=== PATIENT | female | born 1975 | race Caucasian/White ===

== ENCOUNTER 2017-06-01 23:45 | Emergency (ER) | payer MEDICAID ==
[~2017-06-01] VITALS: Ht 160 cm; Wt 81.6 kg
[2017-06-02 00:02] VITALS: BP 122/60
--- NOTE | 2017-06-02 00:09 | NUR ---
to lobby amb, zulay rai noted
--- NOTE | 2017-06-02 00:54 | NUR ---
PT TAKEN TO BED 1
--- NOTE | 2017-06-02 01:05 | NUR ---
42 Y/O F W/C/O R SIDE PAIN S/P TAKEN 3 TRAMADOL PILLS. PT STATES DOES NOT RECALL DOSES BUT TOOK THEM 3 HRS APART. NO S/S OF DISTRESS NOTED. ER MD MADE AWARE.
[2017-06-02 01:24] VITALS: BP 122/60
== END 2017-06-02 01:24 | disposition home or self-care (01) ==
LOC: MED 23:45
DX: K59.00 Constipation, unspecified (principal); F19.20 Other psychoactive substance dependence, uncomplicated
CPT/HCPCS: 81002; 81025; 99282

== ENCOUNTER 2019-03-28 12:20 | Emergency (ER) | payer MEDICAID ==
[~2019-03-28] VITALS: Ht 160 cm; Wt 82.6 kg
[2019-03-28 12:36] VITALS: BP 112/71
--- NOTE | 2019-03-28 12:39 | NUR ---
PT W/C ASSISTED TO BED 10.
--- NOTE | 2019-03-28 12:42 | NUR ---
criminalist technician at bedside.
[2019-03-28] MEDS: IBUPROFEN 400 MG TAB PO ONE (13:37)
--- NOTE | 2019-03-28 14:20 | NUR ---
+ CMS DISTAL TO SPLINT APPLIED BY PHILIPPE SEGOVIA
[2019-03-28 14:27] VITALS: BP 114/72
== END 2019-03-28 14:27 | disposition home or self-care (01) ==
LOC: MED 12:20
DX: S93.402A Sprain of unspecified ligament of left ankle, initial encounter (principal); W10.8XXA Fall (on) (from) other stairs and steps, initial encounter; Y93.89 Activity, other specified; Y92.89 Other specified places as the place of occurrence of the external cause; Y99.8 Other external cause status
CPT/HCPCS: 73610; 99283; Q0092

== ENCOUNTER 2019-06-25 10:39 | Emergency (ER) | payer MEDICAID ==
[~2019-06-25] VITALS: Ht 160 cm; Wt 81.6 kg
[2019-06-25 10:46] VITALS: BP 126/86
--- NOTE | 2019-06-25 11:00 | NUR ---
PT C/O LEFT-SIDED CHEST PAIN RADIATING TO LEFT SHOULDR AND ARM W/ NAUSEA X 3 DAYS. PATIENT STATES PAIN OF 8/10 AT THIS TIME; VSS; PATIENT POSITIONED FOR COMFORT; HOB ELEVATED; BEDRAILS UP X1; BED DOWN. ER MD MADE AWARE OF PT STATUS.
[2019-06-25] MEDS ORDERED: NACL 0.9% 500 ML IV ONE (11:11)
[2019-06-25] MEDS ORDERED: PANTOPRAZOLE 40 MG INJ VIAL IVP ONE (11:15)
[2019-06-25] MEDS ORDERED: ONDANSETRON 4 MG/2 ML VIAL IVP ONE (11:15)
--- NOTE | 2019-06-25 11:26 | NUR ---
XRAY IS AT BEDSIDE.
[2019-06-25 11:48] LABS: BASOPHILS # (AUTO) 0.1 K/uL (0.00-0.22); BASOPHILS % (AUTO) 1.2 % (0.0-2.0); EOSINOPHILS # (AUTO) 0.3 K/uL (0-0.4); EOSINOPHILS % (AUTO) 3.5 % (0.0-4.0); HEMATOCRIT 33.8 % (36-48); LYMPHOCYTES # (AUTO) 2.7 K/uL (2.5-16.5); LYMPHOCYTES % (AUTO) 31.3 % (20.5-51.1); MEAN CORPUSCULAR HEMOGLOBIN 25 pg (27-31); MEAN CORPUSCULAR HGB CONC 33 g/dL (33-37); MEAN CORPUSCULAR VOLUME 76.8 fL (80-94); MONOCYTES # (AUTO) 0.5 K/uL (0.8-1.0); MONOCYTES % (AUTO) 6.3 % (1.7-9.3); NEUTROPHILS # (AUTO) 4.9 K/uL (1.8-7.7); NEUTROPHILS % (AUTO) 57.7 % (42.2-75.2); PLATELET COUNT (AUTO) 290 K/uL (140-450); RED BLOOD CELL COUNT(AUTO) 4.39 MIL/uL (4.20-5.40); RED CELL DISTRIBUTION WIDTH 15.4 % (11.6-13.7); WHITE BLOOD COUNT (AUTO) 8.5 K/uL (4.8-10.8)
[2019-06-25 12:02] LABS: ALBUMIN 3.2 g/dL (3.4-5.0); ANION GAP 13.5 (8-16); CARBON DIOXIDE 25.4 mmol/L (21-32); CREATININE 0.5 mg/dL (0.6-1.3); POTASSIUM 3.9 mmol/L (3.5-5.1); TOTAL BILIRUBIN 0.2 mg/dL (0.0-1.0)
--- NOTE | 2019-06-25 13:01 | NUR ---
PT AMBULATED TO BATHROOM W/ STEADY GAIT.
[2019-06-25 15:26] VITALS: BP 106/60
--- NOTE | 2019-06-25 15:27 | NUR ---
Patient discharged with v/s stable. Written and verbal after care instructions given and explained. Patient alert, oriented and verbalized understanding of instructions. Ambulatory with steady gait. All questions addressed prior to discharge. ID band removed. Patient advised to follow up with PMD. Rx of PROTONIX given. Patient educated on indication of medication including possible reaction and side effects. Opportunity to ask questions provided and answered.
== END 2019-06-25 15:27 | disposition home or self-care (01) ==
LOC: MED 10:39
DX: K29.70 Gastritis, unspecified, without bleeding (principal); R11.0 Nausea; D64.9 Anemia, unspecified
CPT/HCPCS: 36415; 71045; 80053; 83690; 84484; 85025; 93005; 96361; 96374; 96375; 99285; C9113; J2405; J7030; Q0092

== ENCOUNTER 2020-02-05 03:40 | Emergency (ER) | payer MEDICAID ==
[~2020-02-05] VITALS: Ht 160 cm; Wt 88.0 kg
[2020-02-05 03:45] VITALS: BP 122/73
[2020-02-05] MEDS ORDERED: KETOROLAC 15 MG/ML VIAL IVP STA (04:26)
[2020-02-05] MEDS ORDERED: NACL 0.9% 1,000 ML IV ONE (04:30)
[2020-02-05 04:54] LABS: BASOPHILS # (AUTO) 0.1 K/uL (0.00-0.22); HEMOGLOBIN 10.8 g/dL (12.0-16.0); LYMPHOCYTES # (AUTO) 1.8 K/uL (2.5-16.5); MONOCYTES # (AUTO) 0.4 K/uL (0.8-1.0)
[2020-02-05 05:11] LABS: ALBUMIN 3.7 g/dL (3.4-5.0); ANION GAP 13.5 (8-16); BASOPHILS % (AUTO) 1.2 % (0.0-2.0); CARBON DIOXIDE 25.3 mmol/L (21-32); CREATININE 0.8 mg/dL (0.6-1.3); EOSINOPHILS # (AUTO) 0.2 K/uL (0-0.4); EOSINOPHILS % (AUTO) 3.2 % (0.0-4.0); HEMATOCRIT 34.3 % (36-48); LYMPHOCYTES % (AUTO) 22.9 % (20.5-51.1); MEAN CORPUSCULAR HEMOGLOBIN 23 pg (27-31); MEAN CORPUSCULAR HGB CONC 32 g/dL (33-37); MEAN CORPUSCULAR VOLUME 73.5 fL (80-94); MONOCYTES % (AUTO) 4.7 % (1.7-9.3); NEUTROPHILS # (AUTO) 5.3 K/uL (1.8-7.7); PLATELET COUNT (AUTO) 335 K/uL (140-450); POTASSIUM 3.8 mmol/L (3.5-5.1); RED BLOOD CELL COUNT(AUTO) 4.66 MIL/uL (4.20-5.40); RED CELL DISTRIBUTION WIDTH 16.3 % (11.6-13.7); TOTAL BILIRUBIN 0.2 mg/dL (0.0-1.0); WHITE BLOOD COUNT (AUTO) 7.8 K/uL (4.8-10.8)
[2020-02-05 06:10] VITALS: BP 120/70
== END 2020-02-05 06:10 | disposition home or self-care (01) ==
LOC: MED 03:40
DX: K80.20 Calculus of gallbladder without cholecystitis without obstruction (principal)
CPT/HCPCS: 36415; 76705; 80053; 81002; 81025; 82150; 83690; 85025; 96361; 96374; 99284; J1885; J7030; Q0092

== ENCOUNTER 2020-03-29 02:40 | Inpatient (IN) | payer MEDICAID, SELFPAY ==
[~2020-03-29] VITALS: Ht 160 cm; Wt 81.6 kg
[2020-03-29 02:50] VITALS: BP 116/64
--- NOTE | 2020-03-29 02:54 | NUR ---
PT TAKEN TO BED 11
[2020-03-29] MEDS ORDERED: NACL 0.9% 1,000 ML IV ONE (03:00)
[2020-03-29] MEDS ORDERED: ONDANSETRON 4 MG/2 ML VIAL IVP ONE (03:00)
[2020-03-29] MEDS ORDERED: fentaNYL citrate 0.05 MG/ML VIAL IVP ONE (03:00)
--- NOTE | 2020-03-29 03:01 | NUR ---
pt states unable to provide urine and will try again later when fluids is given.
--- NOTE | 2020-03-29 03:02 | NUR ---
Dr. Person at bedside for MSE.
--- NOTE | 2020-03-29 03:05 | NUR ---
labs collected and sent to lab.
[2020-03-29 03:10] LABS: BASOPHILS # (AUTO) 0.1 K/uL (0.00-0.22); EOSINOPHILS # (AUTO) 0.1 K/uL (0-0.4); EOSINOPHILS % (AUTO) 0.9 % (0.0-4.0); NEUTROPHILS # (AUTO) 8.3 K/uL (1.8-7.7); RED CELL DISTRIBUTION WIDTH 17.9 % (11.6-13.7); WHITE BLOOD COUNT (AUTO) 10.5 K/uL (4.8-10.8)
--- NOTE | 2020-03-29 03:12 | NUR ---
18g Left AC IV initiated. flushable and patent. pt tolerated well.
--- NOTE | 2020-03-29 03:12 | NUR ---
44 year old female coming from home for c/o rlq, ruq abdominal pain x 2 days. states 9/10 aching pain. states was seen here in [facility] x 1 week for gallstones, states that today pain is unbearable. pt reports n/v. denies diarrhea/constipation. abdomen is soft and nontender. normoactive bowel sounds. a/o x 4. cbl sounds.normopneic. RRR. denies headache/ blurry vision. denies sob/chest pain. denies any other s/sx. denies injury or trauma. pmhx: anemia, 2c/s nkda
[2020-03-29 03:18] LABS: BASOPHILS % (AUTO) 0.6 % (0.0-2.0); HEMOGLOBIN 10.5 g/dL (12.0-16.0); LYMPHOCYTES # (AUTO) 1.5 K/uL (2.5-16.5); LYMPHOCYTES % (AUTO) 14.3 % (20.5-51.1); MEAN CORPUSCULAR HEMOGLOBIN 22 pg (27-31); MEAN CORPUSCULAR HGB CONC 32 g/dL (33-37); MEAN CORPUSCULAR VOLUME 70.6 fL (80-94); MONOCYTES # (AUTO) 0.5 K/uL (0.8-1.0); MONOCYTES % (AUTO) 5.2 % (1.7-9.3); PLATELET COUNT (AUTO) 357 K/uL (140-450); RED BLOOD CELL COUNT(AUTO) 4.68 MIL/uL (4.20-5.40)
[2020-03-29 03:26] LABS: ALBUMIN 3.6 g/dL (3.4-5.0); ANION GAP 18.5 (8-16); CARBON DIOXIDE 21.3 mmol/L (21-32); CREATININE 0.6 mg/dL (0.6-1.3); POTASSIUM 3.8 mmol/L (3.5-5.1); TOTAL BILIRUBIN 1.3 mg/dL (0.0-1.0)
--- NOTE | 2020-03-29 03:46 | NUR ---
Ultrasound at bedside.
--- NOTE | 2020-03-29 04:10 | NUR ---
ambulated to restroom to provide urine sample.
[2020-03-29] MEDS ORDERED: PIPERACILLIN/TAZOBACTAM 3.375 GM in DEXTROSE 5% 50 ML IV ONE (04:15)
[2020-03-29] MEDS ORDERED: PIPERACILLIN/TAZOBACTAM 3.375 GM VIAL IV ONE (04:21)
[2020-03-29] MEDS ORDERED: MORPHINE SULFATE 4 MG/ML SYR ONE ×3 (04:43→08:06)
[2020-03-29] MEDS ORDERED: MORPHINE SULFATE 4 MG/ML SYR IVP ONE (04:45)
--- NOTE | 2020-03-29 04:51 | NUR ---
blood cultures, urine sample, bruna swab collected and sent to lab.
[2020-03-29 06:00] LABS: APPEARANCE,URINE CLEAR (CLEAR); BILIRUBIN,URINE NEGATIVE (NEGATIVE); BLOOD, URINE 1+ (NEGATIVE); COLOR,URINE YELLOW (YELLOW); LEUKOCYTE ESTERASE ,URINE NEGATIVE (NEGATIVE); NITRITE, URINE NEGATIVE (NEGATIVE); UGLUCOSE NEGATIVE (NEGATIVE)
[2020-03-29] MEDS ORDERED: DOCUSATE SODIUM 100 MG GELCAP PO PRN (06:40)
[2020-03-29] MEDS ORDERED: ZOLPIDEM 5 MG TAB PO PRN (06:40)
[2020-03-29] MEDS ORDERED: ACETAMINOPHEN 325 MG TAB PO PRN (06:40)
[2020-03-29] MEDS ORDERED: LORazepam 2 MG/ML VIAL IM/IVP PRN (06:40)
[2020-03-29] MEDS ORDERED: HYDROcodone/APAP 5/325 MG 1 TAB TAB PO PRN (06:40)
--- NOTE | 2020-03-29 06:51 | NUR ---
X-Ray at bedside.
[2020-03-29] MEDS: DEXT 5% / NACL 0.45% 1,000 ML IV SCH ×2 (06:59→16:11)
--- NOTE | 2020-03-29 07:13 | NUR ---
pt endorsement given to Gayatri MARIE .transfer of care at this time.
[2020-03-29 07:36] LABS: CHOL/HDL RATIO 2.3 (1-4.5); FREE T4 (FREE THYROXINE) 1.14 ng/dL (0.76-1.46); MAGNESIUM 2.1 mg/dL (1.8-2.4); PHOSPHORUS 2.5 mg/dL (2.5-4.9); THYROID STIMULATING HORMONE 1.85 uIU/mL (0.34-3.74)
--- NOTE | 2020-03-29 07:52 | NUR ---
Performed MRSA swab, walked to lab.
[2020-03-29 07:57] LABS: BARBITURATE, URINE NEGATIVE ng/ml (NEG <=200); BENZODIAZEPINE, URINE NEGATIVE ng/mL (NEG <=200); CANNABINOID, URINE NEGATIVE ng/mL (NEG <=50); COCAINE, URINE NEGATIVE ng/mL (NEG <=300); OPIATE, URINE NEGATIVE ng/mL (NEG <=2000); PHENCYCLIDINE SCREEN,URINE NEGATIVE ng/mL (NEG <=25)
[2020-03-29 08:12] LABS: PROTHROMBIN TIME 9.9 secs (10.8-13.4)
[2020-03-29] MEDS: MORPHINE SULFATE 2 MG/ML SYR IVP PRN ×2 (08:17→14:23)
[2020-03-29] MEDS: ONDANSETRON 4 MG/2 ML VIAL IVP PRN ×2 (08:18→16:39)
--- NOTE | 2020-03-29 08:58 | NUR ---
PATIENT HAS BEEN SCREENED AND CATEGORIZED MODERATE NUTRITION RISK. PATIENT WILL BE SEEN WITHIN 3-5 DAYS OF ADMISSION. 03/31/20 04/02/[address]
--- NOTE | 2020-03-29 09:01 | NUR ---
SCDS placed on pt per MD order, HOB elevated, repositioned for comfort. VSS, will continue to monitor.
[2020-03-29 09:46] LABS: RBC,URINE 0-5 /HPF (0-5); WBC,URINE 0-5 /HPF (0-5)
--- NOTE | 2020-03-29 10:46 | NUR ---
Pt resting, HOB elevated, visible rise and fall of chest. Will continue to monitor.
--- NOTE | 2020-03-29 13:18 | NUR ---
Report called to Tyra MARIE for pending admission to [facility] 126A.
--- NOTE | 2020-03-29 13:25 | NUR ---
Patient will be admitted to care of MO PRESTON MD. Admited to [facility]. Will go to room 126A. Belongings list completed. Report to Tyra MARIE.
--- NOTE | 2020-03-29 13:30 | NUR ---
RECEIVED PATIENT AT THIS TIME. PT IS STABLE DENIES PAIN AT THIS TIME. PT IS AAO4 AMBULATES WITH STEADY GAIT. HAS IV ACCESS TO LEFT AC THAT IS INTACT AND PATENT RECONNECTED TO IVF. V/S 98.2, 74, 18, 110/62, 99% RA PAIN 0/10. PT EDUCATED ON NPO STATUS. MRSA SWAB COLLECTED AND ROUTED TO LAB ALL NEEDS MET
--- NOTE | 2020-03-29 15:30 | NUR ---
PT REPORTED PAIN 8/10 TO RIGHT UPPER ABDOMINAL PAIN. PT WAS GIVEN MORPHINE PER MD ORDER. EDUCATED ON ALTERNATIVE PAIN MGMT. PT VERBALIZED UNDERSTANDING. 122/82, 85
--- NOTE | 2020-03-29 19:25 | NUR ---
PT ENDORSED TO PM RN FOR CONTINUITY OF CARE PT STABLE
--- NOTE | 2020-03-29 19:30 | NUR ---
RECEIVED ENDORSEMENT FROM AM SHIFT RN. ALERT AND ORIENTED X4, NO DISTRESS, ON ROOM AIR. LAC 18. INTACT, INFUSING IVF. SAFETY MEASURES IN PLACE, PLAN OF CARE DISCUSSED. CALL LIGHT WITHIN REACH.
[2020-03-29 20:00] VITALS: BP 104/59
[2020-03-29] MEDS: PIPERACILLIN/TAZOBACTAM 3.375 GM in DEXTROSE 5% 50 ML IV SCH (20:50)
--- NOTE | 2020-03-29 21:00 | NUR ---
PATIENT IS AWAKE, DUE MEDS GIVEN ORDERED, MED EDUCATION PROVIDED. ANSWERED ALL QUESTIONS.
--- NOTE | 2020-03-30 01:45 | NUR ---
LAC IV SITE, INFILTRATED, RE INSERTED G 22 AT RT HAND, ATTEMPTED X1 W/ GOOD BLOOD RETURN. IVF CONTINUED.
[2020-03-30] MEDS: DEXT 5% / NACL 0.45% 1,000 ML IV SCH ×2 (01:58→07:40)
[2020-03-30] MEDS: MORPHINE SULFATE 2 MG/ML SYR IVP PRN ×5 (01:59→23:50)
[2020-03-30] MEDS: ONDANSETRON 4 MG/2 ML VIAL IVP PRN ×4 (01:59→23:49)
--- NOTE | 2020-03-30 01:59 | NUR ---
PT IS NAUSEOUS, GAVE ZOFRAN IVP PRN ORDERED, C/O ABDOMINAL PAIN 11/16, MORPHINE IV GIVEN ORDERED.
[2020-03-30 04:00] VITALS: BP 106/59
[2020-03-30] MEDS: PIPERACILLIN/TAZOBACTAM 3.375 GM in DEXTROSE 5% 50 ML IV SCH ×3 (04:31→22:00)
[2020-03-30 06:29] LABS: BASOPHILS % (AUTO) 0.5 % (0.0-2.0); EOSINOPHILS # (AUTO) 0.1 K/uL (0-0.4); EOSINOPHILS % (AUTO) 1.1 % (0.0-4.0); HEMATOCRIT 29.3 % (36-48); HEMOGLOBIN 9.4 g/dL (12.0-16.0); LYMPHOCYTES # (AUTO) 1.4 K/uL (2.5-16.5); LYMPHOCYTES % (AUTO) 14.2 % (20.5-51.1); MEAN CORPUSCULAR HEMOGLOBIN 23 pg (27-31); MEAN CORPUSCULAR HGB CONC 32 g/dL (33-37); MEAN CORPUSCULAR VOLUME 70.8 fL (80-94); MONOCYTES # (AUTO) 0.7 K/uL (0.8-1.0); MONOCYTES % (AUTO) 6.8 % (1.7-9.3); NEUTROPHILS # (AUTO) 7.8 K/uL (1.8-7.7); NEUTROPHILS % (AUTO) 77.4 % (42.2-75.2); PLATELET COUNT (AUTO) 300 K/uL (140-450); RED BLOOD CELL COUNT(AUTO) 4.14 MIL/uL (4.20-5.40); WHITE BLOOD COUNT (AUTO) 10.1 K/uL (4.8-10.8)
[2020-03-30 06:33] LABS: ANION GAP 13.4 (8-16); CARBON DIOXIDE 21.9 mmol/L (21-32); CREATININE 0.6 mg/dL (0.6-1.3); POTASSIUM 3.3 mmol/L (3.5-5.1)
[2020-03-30 06:37] LABS: MAGNESIUM 2.1 mg/dL (1.8-2.4)
--- NOTE | 2020-03-30 07:30 | NUR ---
PT IS STABLE, ENDORSED TO AM SHIFT RN FOR CONTINUITY OF CARE.
--- NOTE | 2020-03-30 07:30 | NUR ---
RECEIVED REPORT FROM NIGHT NURSE FOR CONTINUITY OF CARE, PT IS STABLE, PT HAS RIGHT HAND 22G INFUSING D5 1/2NS AT 120 ML/H, PT AAOX4, SKIN INTACT, WILL CONTINUE TO MONITOR, CALL LIGHT WITHIN REACH.
[2020-03-30 08:00] VITALS: BP 96/59
--- NOTE | 2020-03-30 08:32 | NUR ---
UPDATED PT ON TODAY PLAN OF CARE, PT VERBALIZED UNDERSTANDING, PT IS STABLE, WILL CONTINUE TO MONITOR.
--- NOTE | 2020-03-30 10:00 | NUR ---
ADMINISTERED MORPHINE FOR NUCLEAR MED PROCEDURE AND ZOFRAN FOR NAUSEA, MEDICATION EDUCATION PROVIDED, PT TOLERATED WELL, PT IS STABLE, WILL CONTINUE TO MONITOR.
--- NOTE | 2020-03-30 12:06 | NUR ---
NOTIFIED DR HERNANDEZ PT'S POTASSIUM IS 3.3,
--- NOTE | 2020-03-30 15:12 | NUR ---
ADMINISTERED MORPHINE FOR ABD PAIN 8/10, DULL SHARP PAIN, MEDICATION EDUCATION PROVIDED, PT VERBALIZED UNDERSTANDING, PT TOLERATED WELL, PT IS STABLE, WILL CONTINUE TO MONITOR.
[2020-03-30 16:00] VITALS: BP 116/55
[2020-03-30] MEDS ORDERED: HYDROcodone/APAP 5/325 MG 1 TAB TAB PO PRN (16:35)
[2020-03-30] MEDS ORDERED: MAG SULF 2000 MG/WATER PREMIX 50 ML IV PRN (16:55)
[2020-03-30] MEDS ORDERED: POTASSIUM PHOSPHATE 15 MM in NACL 0.9% 250 ML IV SCH (16:55)
[2020-03-30] MEDS ORDERED: POTASSIUM CHLORIDE 10 MEQ TABER PO PRN (16:55)
[2020-03-30] MEDS: NACL 0.9% 1,000 ML IV SCH ×2 (17:28→23:15)
--- NOTE | 2020-03-30 17:42 | NUR ---
ADMINISTERED K-DUR FOR POTASSIUM OF 3.3, MORPHINE FOR ABD PAIN OF 9/10, MEDICATION EDUCATION PROVIDED, PT VERBALIZED UNDERSTANDING, PT TOLERATED WELL, PT IS STABLE, WILL CONTINUE TO MONITOR.
--- NOTE | 2020-03-30 19:35 | NUR ---
ENDORSE PT TO NIGHT NURSE FOR CONTINUITY OF CARE, PT IS STABLE
--- NOTE | 2020-03-30 19:36 | NUR ---
RECEIVED ENDORSEMENT FROM AM SHIFT RN. ALERT AND ORIENTED X4, NO DISTRESS, ON ROOM AIR. RH 22. INTACT, INFUSING IVF. SAFETY MEASURES IN PLACE, PLAN OF CARE DISCUSSED. CALL LIGHT WITHIN REACH.
--- NOTE | 2020-03-30 21:44 | NUR ---
REFUSED HEPARIN, STATED "I KEPT ON MOVING MY LEGS AND I AM ABLE TO WALK."
--- NOTE | 2020-03-30 22:01 | NUR ---
ZOSYN IV GIVEN ORDERED, NO A/R NOTED.
[2020-03-31] MEDS: NACL 0.9% 1,000 ML IV SCH (01:59)
--- NOTE | 2020-03-31 01:59 | NUR ---
HANGED A NEW IVF NS 1L AT 150CC/HR. ASLEEP, RESPIRATION EVEN AND UNLABORED.
[2020-03-31 04:00] VITALS: BP 115/65
[2020-03-31] MEDS: MORPHINE SULFATE 2 MG/ML SYR IVP PRN (04:23)
--- NOTE | 2020-03-31 04:23 | NUR ---
COMPLAINT OF ABDOMINAL PAIN ATTENDED PROMPTLY, MEDICATED FOR THE SECOND TIME WITH MORPHINE PER MD ORDER.
[2020-03-31] MEDS: PIPERACILLIN/TAZOBACTAM 3.375 GM in DEXTROSE 5% 50 ML IV SCH ×3 (04:24→20:22)
[2020-03-31 06:38] LABS: BASOPHILS % (AUTO) 0.4 % (0.0-2.0); EOSINOPHILS # (AUTO) 0.2 K/uL (0-0.4); EOSINOPHILS % (AUTO) 1.7 % (0.0-4.0); HEMATOCRIT 29.6 % (36-48); HEMOGLOBIN 9.3 g/dL (12.0-16.0); LYMPHOCYTES # (AUTO) 1.7 K/uL (2.5-16.5); LYMPHOCYTES % (AUTO) 15.2 % (20.5-51.1); MEAN CORPUSCULAR HEMOGLOBIN 23 pg (27-31); MEAN CORPUSCULAR HGB CONC 31 g/dL (33-37); MEAN CORPUSCULAR VOLUME 71.5 fL (80-94); MONOCYTES # (AUTO) 0.8 K/uL (0.8-1.0); MONOCYTES % (AUTO) 7.3 % (1.7-9.3); NEUTROPHILS # (AUTO) 8.4 K/uL (1.8-7.7); NEUTROPHILS % (AUTO) 75.4 % (42.2-75.2); PLATELET COUNT (AUTO) 281 K/uL (140-450); RED BLOOD CELL COUNT(AUTO) 4.14 MIL/uL (4.20-5.40); RED CELL DISTRIBUTION WIDTH 18.5 % (11.6-13.7); WHITE BLOOD COUNT (AUTO) 11.1 K/uL (4.8-10.8)
[2020-03-31 06:58] LABS: ANION GAP 12.4 (8-16); CREATININE 0.6 mg/dL (0.6-1.3); POTASSIUM 3.4 mmol/L (3.5-5.1); TOTAL BILIRUBIN 4.7 mg/dL (0.0-1.0)
--- NOTE | 2020-03-31 07:00 | NUR ---
CONDITION REMAIN STABLE. WILL ENDORSE TO AM SHIFT NURSE FOR CONTINUITY OF CARE.
[2020-03-31 07:02] LABS: PHOSPHORUS 2.1 mg/dL (2.5-4.9)
--- NOTE | 2020-03-31 07:28 | NUR ---
RECEIVED PATIENT FROM NIGHT NURSE. PATIENT IN BED AWAKE AND ALERT. FACIAL GRIMACE NOTED C/O PAIN TO ABD. WILL MEDICATE APPROPRIATELY. RESP EVEN AND UNLABORED ON ROOM AIR. RH 22G INFUSING D5-1/2NS. ABLE TO MAKE NEEDS KNOWN. PLAN OF CARE DISCUSSED WITH PATIENT. PATIENT VERBALIZED UNDERSTANDING. SAFETY MEASURES IN PLACE. CALL LIGHT WITHIN REACH. WILL CONTINUE TO MONITOR.
[2020-03-31 08:00] VITALS: BP 104/66
--- NOTE | 2020-03-31 09:25 | NUR ---
PATIENT IN BED AWAKE AND ALERT. SKIN IS WARM TO TOUCH AND INTACT. PAIN REPORTED TO RIGHT LOWER QUADRANT. DX: ACUTE PANCREATITIS. RESP EVEN AND UNLABORED ON ROOM AIR. PATIENT IS ABLE TO AMBULATE TO THE BATHROOM WITH STEADY GAIT. PATIENT ENCOURAGED TO USE CALL LIGHT FOR ASSIST. PLAN OF CARE DISCUSSED WITH PATIENT. PATIENT VERBALIZED UNDERSTANDING. DR ORO DISCUSSED PLAN FOR TOMORROW AM OF ERCP. PATIENT VERBALIZED UNDERSTANDING. WILL OBTAIN CONSENT. RH 22G INTACT AND PATENT INFUSING WELL. CALL LIGHT WITHIN REACH. WILL CONTINUE TO MONITOR.
[2020-03-31] MEDS ORDERED: HYDROmorphone 1 MG/ML AMP IVP PRN (09:30)
[2020-03-31] MEDS ORDERED: KCL 20 MEQ/WATER INJ PREMIX 100 ML IV SCH (10:00)
[2020-03-31 10:06] LABS: FOLIC ACID 11.9 ng/mL (>3.0)
[2020-03-31] MEDS: POTASSIUM CHLORIDE 10 MEQ in LACTATED RINGERS 1,000 ML IV SCH ×2 (10:37→17:33)
[2020-03-31] MEDS: ONDANSETRON 4 MG/2 ML VIAL IVP PRN ×3 (10:40→22:15)
--- NOTE | 2020-03-31 10:45 | NUR ---
PATIENT IN BED AWAKE AND ALERT. DILAUDID GIVEN FOR ABD PAIN. RESP EVEN AND UNLABORED ON ROOM AIR. PATIENT ABLE TO MAKE NEEDS KNOWN. CONSENT FOR ERCP SIGNED BY PATIENT. PROCEDURE SET FOR TOMORROW AM AT [address] ORO. PATIENT VERBALIZED UNDERSTANDING. CALL LIGHT WITHIN REACH. WILL CONTINUE TO MONITOR.
[2020-03-31] MEDS ORDERED: LIDOCAINE MPF IV SCH (11:15)
[2020-03-31] MEDS ORDERED: NACL 0.9% IV SCH (11:15)
[2020-03-31] MEDS ORDERED: POTASSIUM CHLORIDE IV SCH (11:15)
[2020-03-31] MEDS: SENNA 8.6 MG TAB PO SCH ×2 (12:09→18:36)
--- NOTE | 2020-03-31 13:55 | NUR ---
PATIENT IN BED, PAIN AT TOLERABLE LEVEL AT THIS TIME. RESP EVEN AND UNLABORED ON ROOM AIR. NO NOTED DISTRESS AT THIS TIME. PATIENT IS ABLE TO MAKE NEEDS KNOWN. WILL CONTINUE TO MONITOR.
[2020-03-31] MEDS: HYDROmorphone 1 MG/ML AMP IVP PRN ×2 (15:51→19:51)
--- NOTE | 2020-03-31 15:55 | NUR ---
DILAUDID GIVEN FOR ABD PAIN ON SCALE OF 7/10. ZOFRAN ALSO GIVEN FOR FEELING NAUSEA. PATIENT ENCOURAGED DEEP BREATH AND COUGH. PATIENT ABLE TO AMBULATE TO THE BATHROOM WITH STEADY GAIT. CALL LIGHT WITHIN REACH. WILL CONTINUE TO MONITOR
[2020-03-31 16:00] VITALS: BP 119/75
--- NOTE | 2020-03-31 16:00 | NUR ---
PATIENT IN BED C/O SEVERE PAIN TO ABD. DR HERNANDEZ MADE AWARE OF PATIENT PAIN AND LAST DILAUDID WAS GIVEN WITHIN 6 HRS. RECEIVED ORDER TO DECREASE FREQUENCY OF DILAUDID 1MG IVP PRN Q4H. ORDER READ BACK AND CONFIRMED. ORDER CARRIED OUT. PATIENT ALSO RECEIVED ZOFRAN FOR NAUSEA. RESP EVEN AND UNLABORED ON ROOM AIR. CALL LIGHT WITHIN REACH. WILL CONTINUE TO MONITOR.
--- NOTE | 2020-03-31 17:35 | NUR ---
PATIENT IN BED TALKING ON HER CELL PHONE. PAIN IS AT TOLERABLE LEVEL AT THIS TIME. RESP EVEN AND UNLABORED ON ROOM AIR. ABLE TO MAKE NEEDS KNOWN. CALL LIGHT WITHIN REACH. WILL CONTINUE TO MONITOR.
--- NOTE | 2020-03-31 19:20 | NUR ---
ENDORSED PATIENT TO NIGHT NURSE. PATIENT IN STABLE CONDITION.
--- NOTE | 2020-03-31 19:21 | NUR ---
RECEIVED REPORT FROM NELLA ABBOTT RN. PT AOX4 ON ROOM AIR. NO S/S RESPIRATORY DISTRESS. WILL MEDICATE WITH PRN PAIN MED FOR ABD PAIN. IV SITE R HAND 22G, PATENT AND INTACT. SAFETY MEASURES IN PLACE. CALL LIGHT WITHIN REACH. WILL CONTINUE TO MONITOR
--- NOTE | 2020-03-31 19:51 | NUR ---
ADMINISTERED PRN DILAUDID FOR PT C/O ABD PAIN. TOLERATED WELL. WILL CONTINUE TO MONITOR
[2020-03-31 20:00] VITALS: BP 120/83
--- NOTE | 2020-03-31 22:19 | NUR ---
ADMINISTERED PRN ZOFRAN FOR PT C/O NAUSEA. TOLERATED WELL. WILL CONTINUE TO MONITOR
[2020-04-01] MEDS ORDERED: METOCLOPRAMIDE 10 MG/2 ML INJ VIAL IVP PRN (00:35)
[2020-04-01] MEDS ORDERED: ONDANSETRON 4 MG/2 ML VIAL IVP PRN ×3 (00:35→12:15)
--- NOTE | 2020-04-01 00:36 | NUR ---
PT C/O NAUSEA AND VOMITING, SAID THAT ZOFRAN IS NOT WORKING. MADE AWARE. NEW ORDERS RECEIVED
[2020-04-01] MEDS: HYDROmorphone 1 MG/ML AMP IVP PRN ×4 (00:47→20:22)
--- NOTE | 2020-04-01 00:47 | NUR ---
ADMINISTERED PRN DILAUDID FOR PT C/O ABD PAIN. TOLERATED WELL. WILL CONTINUE TO MONITOR
[2020-04-01] MEDS: POTASSIUM CHLORIDE 10 MEQ in LACTATED RINGERS 1,000 ML IV SCH ×3 (01:36→17:42)
[2020-04-01 04:00] VITALS: BP 112/77
--- NOTE | 2020-04-01 04:50 | NUR ---
ADMINISTERED PRN DILAUDID FOR PT C/O ABD PAIN. TOLERATED WELL. WILL CONTINUE TO MONITOR
[2020-04-01] MEDS: PIPERACILLIN/TAZOBACTAM 3.375 GM in DEXTROSE 5% 50 ML IV SCH ×3 (04:51→20:32)
[2020-04-01 06:19] LABS: BASOPHILS # (AUTO) 0.1 K/uL (0.00-0.22); BASOPHILS % (AUTO) 0.5 % (0.0-2.0); EOSINOPHILS # (AUTO) 0.2 K/uL (0-0.4); EOSINOPHILS % (AUTO) 1.9 % (0.0-4.0); HEMATOCRIT 30.3 % (36-48); HEMOGLOBIN 9.6 g/dL (12.0-16.0); LYMPHOCYTES # (AUTO) 1.4 K/uL (2.5-16.5); LYMPHOCYTES % (AUTO) 11.3 % (20.5-51.1); MEAN CORPUSCULAR HEMOGLOBIN 23 pg (27-31); MEAN CORPUSCULAR HGB CONC 32 g/dL (33-37); MEAN CORPUSCULAR VOLUME 71.6 fL (80-94); MONOCYTES # (AUTO) 0.7 K/uL (0.8-1.0); MONOCYTES % (AUTO) 5.8 % (1.7-9.3); NEUTROPHILS # (AUTO) 10.3 K/uL (1.8-7.7); NEUTROPHILS % (AUTO) 80.5 % (42.2-75.2); PLATELET COUNT (AUTO) 264 K/uL (140-450); RED BLOOD CELL COUNT(AUTO) 4.23 MIL/uL (4.20-5.40); WHITE BLOOD COUNT (AUTO) 12.8 K/uL (4.8-10.8)
[2020-04-01 06:36] LABS: ANION GAP 14.5 (8-16); CARBON DIOXIDE 24.1 mmol/L (21-32); CREATININE 0.5 mg/dL (0.6-1.3); POTASSIUM 3.6 mmol/L (3.5-5.1)
[2020-04-01 06:38] LABS: MAGNESIUM 1.9 mg/dL (1.8-2.4); PHOSPHORUS 2.2 mg/dL (2.5-4.9)
--- NOTE | 2020-04-01 07:25 | NUR ---
RECEIVED REPORT FROM PROGRAM SERVICES PLANNER NURSE NIKITA FOR CONTINUITY OF CARE. PATIENT IN STABLE CONDITION. RESPIRATIONS EVEN AND UNLABORED, ROOM AIR. IV INTACT AND PATENT. SAFETY MEASURES IN PLACE. BED IN LOW POSITION. CALL LIGHT WITHIN REACH. WILL CONTINUE TO MONITOR.
--- NOTE | 2020-04-01 07:25 | NUR ---
ENDORSED PT TO DAY RN FOR CONTINUITY OF CARE. PT IS IN STABLE CONDITION
[2020-04-01 08:00] VITALS: BP 131/55
--- NOTE | 2020-04-01 08:40 | NUR ---
OFF UNIT FOR SX. PATIENT IN STABLE CONDITION.
[2020-04-01] MEDS: SENNA 8.6 MG TAB PO SCH ×3 (08:50→17:57)
[2020-04-01] MEDS ORDERED: diphenhydrAMINE 50 MG/ML VIAL IVP PRN ×2 (09:00→12:15)
[2020-04-01] MEDS ORDERED: SODIUM PHOSPHATE 15 MMOLE in NACL 0.9% 250 ML IV SCH (09:00)
[2020-04-01] MEDS ORDERED: MEPERIDINE 25 MG/ML SYR IVP PRN ×2 (09:00→12:15)
[2020-04-01] MEDS ORDERED: fentaNYL citrate 0.05 MG/ML VIAL IVP PRN ×2 (09:00→12:15)
[2020-04-01] MEDS ORDERED: LACTATED RINGERS 1,000 ML IV SCH ×2 (09:00→12:15)
[2020-04-01 09:17] LABS: ALBUMIN 2.8 g/dL (3.4-5.0); ANION GAP 17.2 (8-16); CARBON DIOXIDE 21.6 mmol/L (21-32); CREATININE 0.5 mg/dL (0.6-1.3); POTASSIUM 3.8 mmol/L (3.5-5.1); TOTAL BILIRUBIN 5.3 mg/dL (0.0-1.0)
--- NOTE | 2020-04-01 09:38 | NUR ---
PATIENT BACK ON UNIT NOT ABLE TO PERFORM SX AT THIS TIME. PATIENT IN STABLE CONDITION.
--- NOTE | 2020-04-01 09:56 | NUR ---
GAVE PRN MEDICATIONS FOR PAIN AND NAUSEA PER PATIENT REQUEST. PATIENT TOLERATED WELL. BED IN LOW POSITION. CALL LIGHT WITHIN REACH. WILL CONTINUE TO MONITOR.
--- NOTE | 2020-04-01 13:15 | NUR ---
PATIENT OFF UNIT FOR SX PATIENT IN STABLE CONDITION.
[2020-04-01] MEDS ORDERED: GLYCOPYRROLATE 0.2 MG/ML VIAL ONE (13:45)
[2020-04-01] MEDS ORDERED: fentaNYL citrate 0.05 MG/ML VIAL ONE (13:45)
[2020-04-01] MEDS ORDERED: DEXAMETHASONE 4 MG/ML VIAL ONE (13:45)
[2020-04-01] MEDS ORDERED: LIDOCAINE 2% 100 MG/5 ML SYR IVP ONE (13:45)
[2020-04-01] MEDS ORDERED: KETAMINE 500 MG/5 ML VIAL ONE (13:45)
[2020-04-01] MEDS ORDERED: ONDANSETRON 4 MG/2 ML VIAL ONE (13:45)
[2020-04-01] MEDS ORDERED: PROPOFOL 200 MG/20 ML VIAL IV ONE (13:45)
[2020-04-01] MEDS ORDERED: MIDAZOLAM 2 MG/2 ML VIAL ONE (13:45)
[2020-04-01] MEDS ORDERED: METOCLOPRAMIDE 10 MG/2 ML INJ VIAL ONE (13:45)
[2020-04-01] MEDS ORDERED: SIMETHICONE 40 MG/0.6 ML ONE (13:47)
--- NOTE | 2020-04-01 15:50 | NUR ---
PATIENT BACK ON UNIT. PATIENT IN STABLE CONDITION. BED IN LOW POSITION. CALL LIGHT WITHIN REACH. BED ALARM ON. WILL CONTINUE TO MONITOR.
[2020-04-01 16:00] VITALS: BP 109/55
--- NOTE | 2020-04-01 17:50 | NUR ---
GAVE PATIENT LIQUID DIET TRAY AT THIS TIME. INSTRUCTED PATIENT TO TAKE TIME EATING. Addendum: 04/01/20 at 2014 by Marylou Garcia RN PATIENT WAS ABLE TO TOLERATE FOOD.
--- NOTE | 2020-04-01 19:48 | NUR ---
GAVE REPORT TO COUNTER INSTALLER NURSE NIKITA FOR CONTINUITY OF CARE. PATIENT IN STABLE CONDITION. INFORMED NURSE PATIENT WILL BE NPO AFTER MIDNIGHT.
--- NOTE | 2020-04-01 19:50 | NUR ---
RECEIVED REPORT FROM SCAR RNFLORECITA. PT AOX4 ON ROOM AIR. NO S/S RESPIRATORY DISTRESS. IV SITE R HAND 22G PATENT AND INTACT INFUSING IVF ORDERED. SAFETY MEASURES IN PLACE. CALL LIGHT WITHIN REACH. WILL CONTINUE TO MONITOR
[2020-04-01 20:20] VITALS: BP 108/64
--- NOTE | 2020-04-01 20:22 | NUR ---
ADMINISTERED PRN PAIN MEDICATION FOR PT C/O ABD PAIN. TOLERATED WELL. WILL CONTINUE TO MONITOR
--- NOTE | 2020-04-01 20:32 | NUR ---
ADMINISTERED SCHEDULED MED. MEDICATION EDUCATION PROVIDED. PT TOLERATED WELL. WILL CONTINUE TO MONITOR
--- NOTE | 2020-04-01 22:30 | NUR ---
PT AWAKE IN BED. DENIES PAIN, DENIES NAUSEA. NO DISTRESS NOTED. WILL CONTINUE TO MONITOR
[2020-04-02] MEDS: POTASSIUM CHLORIDE 10 MEQ in LACTATED RINGERS 1,000 ML IV SCH ×2 (01:45→16:20)
--- NOTE | 2020-04-02 02:05 | NUR ---
PT ASLEEP IN BED. RESPIRATIONS EVEN AND UNLABORED. NO DISTRESS NOTED. WILL CONTINUE TO MONITOR
[2020-04-02 04:00] VITALS: BP 104/61
[2020-04-02] MEDS: PIPERACILLIN/TAZOBACTAM 3.375 GM in DEXTROSE 5% 50 ML IV SCH ×3 (05:04→23:17)
--- NOTE | 2020-04-02 06:00 | NUR ---
OBTAINED CONSENT FOR BRETT CONTRERAS. EDUCATION PROVIDED. PT VERBALIZED UNDERSTANDING
[2020-04-02 06:17] LABS: BASOPHILS % (AUTO) 0.2 % (0.0-2.0); EOSINOPHILS % (AUTO) 0.1 % (0.0-4.0); HEMATOCRIT 26.8 % (36-48); HEMOGLOBIN 8.6 g/dL (12.0-16.0); MAGNESIUM 1.8 mg/dL (1.8-2.4); MEAN CORPUSCULAR HEMOGLOBIN 23 pg (27-31); MEAN CORPUSCULAR HGB CONC 32 g/dL (33-37); MEAN CORPUSCULAR VOLUME 71.1 fL (80-94); MONOCYTES # (AUTO) 0.3 K/uL (0.8-1.0); MONOCYTES % (AUTO) 3.1 % (1.7-9.3); NEUTROPHILS # (AUTO) 8.7 K/uL (1.8-7.7); NEUTROPHILS % (AUTO) 86.6 % (42.2-75.2); PHOSPHORUS 3.1 mg/dL (2.5-4.9); PLATELET COUNT (AUTO) 286 K/uL (140-450); RED BLOOD CELL COUNT(AUTO) 3.77 MIL/uL (4.20-5.40); RED CELL DISTRIBUTION WIDTH 18.8 % (11.6-13.7); WHITE BLOOD COUNT (AUTO) 10.1 K/uL (4.8-10.8)
[2020-04-02 06:22] LABS: ALBUMIN 2.4 g/dL (3.4-5.0); ANION GAP 13.5 (8-16); CARBON DIOXIDE 24.8 mmol/L (21-32); CREATININE 0.6 mg/dL (0.6-1.3); POTASSIUM 3.3 mmol/L (3.5-5.1)
--- NOTE | 2020-04-02 07:10 | NUR ---
PATIENT OFF FLOOR WENT TO SURGERY.
[2020-04-02] MEDS ORDERED: LIDOCAINE 1% 500 MG/50 ML VIAL ONE (07:20)
[2020-04-02] MEDS ORDERED: BUPIVACAINE-MPF 0.25% 30 ML VIAL INJ ONE (07:20)
--- NOTE | 2020-04-02 07:25 | NUR ---
ENDORSED PT TO DAY RN FOR CONTINUITY OF CARE. PT IS IN STABLE CONDITION
--- NOTE | 2020-04-02 07:30 | NUR ---
RECEIVED REPORT FROM FRANK SHELTON. PATIENT WENT TO SURGERY.
[2020-04-02] MEDS ORDERED: fentaNYL citrate 0.05 MG/ML VIAL ONE (07:35)
[2020-04-02] MEDS ORDERED: GLYCOPYRROLATE 0.2 MG/ML VIAL ONE (07:35)
[2020-04-02] MEDS ORDERED: SUCCINYLCHOLINE CHLORIDE 200 MG/10 ML VIAL IVP ONE (07:35)
[2020-04-02] MEDS ORDERED: NEOSTIGMINE 1:1000 10 MG/10 ML VIAL ONE (07:35)
[2020-04-02] MEDS ORDERED: ONDANSETRON 4 MG/2 ML VIAL ONE (07:35)
[2020-04-02] MEDS ORDERED: PROPOFOL 200 MG/20 ML VIAL IV ONE (07:35)
[2020-04-02] MEDS ORDERED: HYDROmorphone PFS 2 MG/ML SYR ONE (07:35)
[2020-04-02] MEDS ORDERED: DEXAMETHASONE 4 MG/ML VIAL ONE (07:35)
[2020-04-02] MEDS ORDERED: METOCLOPRAMIDE 10 MG/2 ML INJ VIAL ONE (07:35)
[2020-04-02] MEDS ORDERED: LIDOCAINE MPF 2% 100 MG/5 ML VIAL INJ ONE (07:35)
[2020-04-02] MEDS ORDERED: KETOROLAC 30 MG/ML VIAL ONE (07:35)
[2020-04-02] MEDS ORDERED: ROCURONIUM 50 MG/5 ML VIAL IV ONE (07:35)
[2020-04-02] MEDS ORDERED: SEVOFLURANE 250 ML BTL INH ONE (07:35)
[2020-04-02] MEDS ORDERED: diphenhydrAMINE 50 MG/ML VIAL IVP PRN (08:40)
[2020-04-02] MEDS ORDERED: ONDANSETRON 4 MG/2 ML VIAL IVP PRN (08:40)
[2020-04-02] MEDS ORDERED: fentaNYL citrate 0.05 MG/ML VIAL IVP PRN (08:40)
[2020-04-02] MEDS ORDERED: MEPERIDINE 25 MG/ML SYR IVP PRN (08:40)
[2020-04-02] MEDS ORDERED: LACTATED RINGERS 1,000 ML IV SCH (08:40)
[2020-04-02] MEDS ORDERED: HYDROmorphone 1 MG/ML AMP IVP PRN (09:15)
[2020-04-02] MEDS ORDERED: MORPHINE SULFATE 2 MG/ML SYR IVP PRN (09:15)
[2020-04-02] MEDS ORDERED: ONDANSETRON 4 MG/2 ML VIAL IV PRN (09:15)
[2020-04-02] MEDS ORDERED: MORPHINE SULFATE 4 MG/ML SYR IV PRN (09:15)
[2020-04-02] MEDS ORDERED: HYDROcodone/APAP 5/325 MG 1 TAB TAB PO PRN (09:15)
--- NOTE | 2020-04-02 10:30 | NUR ---
PATIENT BACK FROM SURGERY ALERT AWAKE ORIENTED, NOT IN ANY DISTRESS NOTED.VITALS STABLE. WILL CONTINUE TO MONITOR.
[2020-04-02] MEDS: SENNA 8.6 MG TAB PO SCH ×3 (10:57→16:27)
--- NOTE | 2020-04-02 13:32 | NUR ---
SOCIAL WORK NOTE: SW WAS UNABLE TO COMPLETE ASSESSMENT DUE TO PATIENT BEING IN SURGERY. SW CONTACTED EMERGENCY CONTACT, EDINSON COUCH [phone] AND LEFT VM.
--- NOTE | 2020-04-02 15:03 | NUR ---
04/02/20 RD INITIAL ASSESSMENT COMPLETED PLEASE REFER TO NUTRITION ASSESSMENT UNDER CARE ACTIVITY FOR ESTIMATED NUTRITIONAL NEEDS. 1. CONTINUE CLEAR LIQUIDS DIET TOLERATED 2. RECOMMEND CARDIAC DIET WHEN PATIENT IS MEDICALLY STABLE FOR SOLID FOODS 3. RD PROVIDED PANCREATITIS NUTRITION THERAPY EDUCATION 4. RD TO FOLLOW-UP 3-5 DAYS, MODERATE RISK MICHAEL RAMIREZ RD
[2020-04-02 16:00] VITALS: BP 117/63
[2020-04-02] MEDS: FERROUS SULFATE 325 MG TABEC PO SCH (16:24)
[2020-04-02] MEDS ORDERED: POTASSIUM CHLORIDE 20% 40 MEQ/15 ML UDC GT SCH (16:30)
--- NOTE | 2020-04-02 19:55 | NUR ---
BEDSIDE REPORT GIVEN TO MITCHELL. PATIENT IN STABLE CONDITION. RAISA EMPTIED 20 ML OUTPUT TO BROWNISH COLOR.
--- NOTE | 2020-04-02 19:56 | NUR ---
RECD. RESTING IN BED, AWAKE, A/OX4. RESPIRATION EVEN AND UNLABORED. WATCHING TV. INCISION IN THE RIGHT ANKLE WITH COREY WRAPPED BANDAGE, TOES POSITIVE FOR MOVEMENTS, SENSATION, CAPILLARY REFILL LESS THREE SECONDS. COREY WRAPPED AT THE RIGHT ELBOW IN PLACED. USES BEDPAN. PAIN IN THE RIGHT ANKLE, 05/19 STATED TOLERABLE. WILL MEDICATE PER MD ORDER. ON ROOM AIR. TOLERATING REGULAR DIET. Addendum: 04/03/20 at 0201 by Angela Acuna LVN CORRECTION: THIS NOTES IS NOT FOR THIS PATIENT.
--- NOTE | 2020-04-02 21:00 | NUR ---
DISCUSSED PLAN OF CARE WITH LARA MEDRANO.
--- NOTE | 2020-04-02 21:30 | NUR ---
IV INFILTRATED, WILL INSERT NEW IV LINE.
[2020-04-02] MEDS ORDERED: KETOROLAC 15 MG/ML VIAL IM/IVP PRN (22:10)
[2020-04-02] MEDS: KETOROLAC 15 MG/ML VIAL IM/IVP PRN ×2 (22:38→22:40)
--- NOTE | 2020-04-02 23:00 | NUR ---
PATIENT IS A HARD STICK, NEW IV LINE INSERTED AT THE RIGHT WRIST BY PATRICIA ICU NURSE.
[2020-04-03] VITALS: BP 108/64
[2020-04-03] MEDS: POTASSIUM CHLORIDE 10 MEQ in LACTATED RINGERS 1,000 ML IV SCH (00:04)
--- NOTE | 2020-04-03 01:00 | NUR ---
SLEEPING COMFORTABLY IN BED.
[2020-04-03 05:30] LABS: BASOPHILS % (AUTO) 0.2 % (0.0-2.0); EOSINOPHILS % (AUTO) 0.1 % (0.0-4.0); HEMATOCRIT 25.4 % (36-48); HEMOGLOBIN 8.2 g/dL (12.0-16.0); LYMPHOCYTES # (AUTO) 1.7 K/uL (2.5-16.5); LYMPHOCYTES % (AUTO) 19.6 % (20.5-51.1); MEAN CORPUSCULAR HEMOGLOBIN 23 pg (27-31); MEAN CORPUSCULAR HGB CONC 32 g/dL (33-37); MEAN CORPUSCULAR VOLUME 71.4 fL (80-94); MONOCYTES # (AUTO) 0.7 K/uL (0.8-1.0); MONOCYTES % (AUTO) 8.2 % (1.7-9.3); NEUTROPHILS # (AUTO) 6.2 K/uL (1.8-7.7); NEUTROPHILS % (AUTO) 71.9 % (42.2-75.2); PLATELET COUNT (AUTO) 271 K/uL (140-450); RED BLOOD CELL COUNT(AUTO) 3.55 MIL/uL (4.20-5.40); RED CELL DISTRIBUTION WIDTH 18.5 % (11.6-13.7); WHITE BLOOD COUNT (AUTO) 8.6 K/uL (4.8-10.8)
[2020-04-03] MEDS: PIPERACILLIN/TAZOBACTAM 3.375 GM in DEXTROSE 5% 50 ML IV SCH (05:49)
--- NOTE | 2020-04-03 06:20 | NUR ---
INFORMED DR. DURAN, PATIENT COMPLAINING THAT NORCO AND TORADOL DOES NOT WORK FOR HER PAIN, REQUESTING FOR A STRONGER PAIN MEDICATION.
[2020-04-03 06:35] LABS: MAGNESIUM 1.9 mg/dL (1.8-2.4); PHOSPHORUS 2.3 mg/dL (2.5-4.9)
[2020-04-03 06:36] LABS: ALBUMIN 2.5 g/dL (3.4-5.0); ANION GAP 12.9 (8-16); CARBON DIOXIDE 25.5 mmol/L (21-32); CREATININE 0.6 mg/dL (0.6-1.3); POTASSIUM 3.4 mmol/L (3.5-5.1); TOTAL BILIRUBIN 1.1 mg/dL (0.0-1.0)
--- NOTE | 2020-04-03 07:00 | NUR ---
DR DURAN WILL COME AND SEE PATIENT, BEFORE ORDERING ANOTHER PAIN MEDICATION. CONDITION REMAIN STABLE. WILL ENDORSE TO AM SHIFT NURSE FOR CONTINUITY OF CARE.
--- NOTE | 2020-04-03 07:30 | NUR ---
RECEIVED PT AAOX4. NO SOB NOTED. NO C/O PAIN AT THIS TIME. INSTRUCTED PT TO CALL FOR ASSISTANCE, CALL LIGHT WITHIN REACH, PT VERBALIZED UNDERSTANDING.
[2020-04-03 08:00] VITALS: BP 104/59
[2020-04-03] MEDS: FERROUS SULFATE 325 MG TABEC PO SCH (08:40)
[2020-04-03] MEDS: SENNA 8.6 MG TAB PO SCH (08:40)
[2020-04-03] MEDS: KETOROLAC 15 MG/ML VIAL IM/IVP PRN (09:53)
[2020-04-03] MEDS ORDERED: AMOX-999 PO (10:35)
[2020-04-03] MEDS ORDERED: FERR325E14 PO (10:38)
[2020-04-03] MEDS ORDERED: POTA10TE30 PO (10:38)
[2020-04-03] MEDS ORDERED: K PH1TAB6 PO (10:39)
[2020-04-03] MEDS ORDERED: HYDR-5122 PO (10:53)
[2020-04-03] MEDS ORDERED: FLU VACCINE QS2020-21 0.5 ML SYR IMVAC PRN (11:55)
--- NOTE | 2020-04-03 13:00 | NUR ---
DISCHARGE PHOTO TAKEN AND DOCUMENTED. RT RAISA REMOVED ORDERED. 15 MLS OF SERO SANG DRAINAGE NOTED. PT TOLERATED procedure well.
--- NOTE | 2020-04-03 13:30 | NUR ---
DISCHARGE INSTRUCTIONS GIVEN TO PT WHICH VERBALIZED FULL UNDERSTANDING OF THE INSTRUCTIONS GIVE AND THE NEED TO FOLLOW UP WITH DR. DARLING ON 2019. ARM BANDS AND IV REMOVED, CANNULA TIP INTACT.
--- NOTE | 2020-04-03 14:00 | NUR ---
PT WHEELED OUT TO [facility] IN STABLE CONDITION. NO COMPLAINTS MADE. PT IS D/C HOME WITH .
== END 2020-04-03 14:00 | disposition home or self-care (01) | DRG 263 ==
LOC: MED 02:40 → MTU 04:20 → MMU 06:10
PROVIDERS: ADMIT Family Medicine; ATTEND Family Medicine
PROC: 0F798DZ Dilation of Common Bile Duct with Intraluminal Device, Via Natural or Artificial Opening Endoscopic (ICD-10-PCS; 2020-04-01)
PROC: 0DJ08ZZ Inspection of Upper Intestinal Tract, Via Natural or Artificial Opening Endoscopic (ICD-10-PCS; principal; 2020-04-01 09:00)
PROC: 0FT44ZZ Resection of Gallbladder, Percutaneous Endoscopic Approach (ICD-10-PCS; 2020-04-02)
DX: K85.10 Biliary acute pancreatitis without necrosis or infection (principal); E83.39 Other disorders of phosphorus metabolism; E43 Unspecified severe protein-calorie malnutrition; K80.10 Calculus of gallbladder with chronic cholecystitis without obstruction; Z20.828 Contact with and (suspected) exposure to other viral communicable diseases; R74.01 Elevation of levels of liver transaminase levels; Z98.891 History of uterine scar from previous surgery; D50.9 Iron deficiency anemia, unspecified; E87.6 Hypokalemia; E66.9 Obesity, unspecified; Z68.31 Body mass index [BMI] 31.0-31.9, adult; J98.11 Atelectasis; Z56.0 Unemployment, unspecified
CPT/HCPCS: 36415; 71045; 74330; 76705; 78445; 80048; 80053; 80305; 81001; 82150; 82374; 82607; 82728; 82746; 82977; 83036; 83540; 83690; 83735; 83880; 84100; 84439; 84443; 84484; 84703; 85025; 85045; 85610; 85730; 86886; 86900; 86901; 87040; 87081; 88304; 93005; 96361; 96365; 96375; 99285; C1769; C1773; J0330; J1100; J1170; J1644; J1885; J2001; J2250; J2270; J2405; J2543; J2704; J2710; J2765; J3010; J3480; J3490; J7030; J7060; J7120

== ENCOUNTER 2023-01-28 15:56 | Emergency (ER) | payer SELFPAY ==
[~2023-01-28] VITALS: Ht 160 cm; Wt 83.9 kg
[~2023-01-28 15:56] MED LIST: AMOX-999 PO; FERR325E14 PO; HYDR-5122 PO; K PH1TAB6 PO; POTA10TA70 PO
[2023-01-28 16:23] VITALS: BP 122/69; PULSE 66; RESP 18; TEMP 98.5; O2SAT 98
[2023-01-28 17:18] LABS: BASOPHILS # (AUTO) 0.1 K/uL (0.00-0.22); EOSINOPHILS # (AUTO) 0.3 K/uL (0-0.4); HEMATOCRIT 33.1 % (36-48); HEMOGLOBIN 10.7 g/dL (12.0-16.0); LYMPHOCYTES # (AUTO) 2.3 K/uL (2.5-16.5); LYMPHOCYTES % (AUTO) 37.7 % (20.5-51.1); MEAN CORPUSCULAR HEMOGLOBIN 25 pg (27-31); MEAN CORPUSCULAR HGB CONC 32 g/dL (33-37); MEAN CORPUSCULAR VOLUME 77.4 fL (80-94); MONOCYTES # (AUTO) 0.4 K/uL (0.8-1.0); MONOCYTES % (AUTO) 6.8 % (1.7-9.3); NEUTROPHILS # (AUTO) 3.1 K/uL (1.8-7.7); NEUTROPHILS % (AUTO) 50.5 % (42.2-75.2); PLATELET COUNT (AUTO) 333 K/uL (140-450); RED BLOOD CELL COUNT(AUTO) 4.28 MIL/uL (4.20-5.40); RED CELL DISTRIBUTION WIDTH 15.4 % (11.6-13.7); WHITE BLOOD COUNT (AUTO) 6.2 K/uL (4.8-10.8)
[2023-01-28] MEDS ORDERED: IBUP-2213 PO (17:37)
[2023-01-28] MEDS ORDERED: ATA25 PO (17:37)
[2023-01-28 17:47] VITALS: BP 111/69; PULSE 66; RESP 14; TEMP 98.5; O2SAT 95
== END 2023-01-28 17:48 | disposition home or self-care (01) ==
LOC: MED 15:56
DX: R07.89 Other chest pain (principal); F41.9 Anxiety disorder, unspecified; R42 Dizziness and giddiness; Z79.899 Other long term (current) drug therapy; Z90.49 Acquired absence of other specified parts of digestive tract
CPT/HCPCS: 36415; 81025; 85025; 93005; 99284